=== PATIENT | female | born 1975 | race Caucasian/White ===

== ENCOUNTER 2023-11-01 04:30 | Emergency (ER) | payer SELFPAY ==
[2023-11-01] MEDS ORDERED: predniSONE 10 MG TAB ONE (04:45)
[2023-11-01] MEDS ORDERED: predniSONE 20 MG TAB ONE (04:45)
[2023-11-01] MEDS ORDERED: Ibuprofen 800 MG TAB ONE (04:45)
== END 2023-11-01 05:14 | disposition home or self-care (01) ==
LOC: MADERS 04:30
DX: R21 Rash and other nonspecific skin eruption (principal); F17.210 Nicotine dependence, cigarettes, uncomplicated
CPT/HCPCS: 99282; J7512